=== PATIENT | female | born 1970 | race Caucasian/White ===

== ENCOUNTER → 2017-01-19 | Outpatient (CLI) | payer BC ==
[~2017-01-19] MED LIST: ASPI-232 PO; CALC500C70 PO; LEVO25TA PO; MULTTAB58 PO; VNTHFA/IN INH
--- NOTE | 2017-01-19 15:21 | DIAGNOSTIC IMAGING REPORT ---
LEFT LOWER EXTREMITY VENOUS DOPPLER HISTORY: M79.605 Left leg [id number] COMPARISON STUDY: None. FINDINGS: There is normal compressibility, flow, and augmentation within the left lower extremity deep venous system. However, there is thrombus identified within the greater saphenous vein at the mid calf extending up to the level of the knee. IMPRESSION: No DVT within the left lower extremity. Thrombosed greater saphenous vein within the left lower leg. Electronically signed by: Richard Gaviria M.D. 01/19/2017 3:20 PM Dictated Date/Time: 01/19/2017 3:19 PM
== END | disposition home or self-care (01) ==
LOC: C.ULTRBC 14:46
PROVIDERS: ATTEND Physician Assistant
DX: I82.812 Embolism and thrombosis of superficial veins of left lower extremity (principal)

== ENCOUNTER → 2017-02-03 | Outpatient (CLI) | payer BC ==
--- NOTE | 2017-02-03 12:55 | MAMMOGRAPHY REPORT ---
BILATERAL DIGITAL SCREENING MAMMOGRAM TOMOSYNTHESIS WITH CAD: 02/03/2017 CLINICAL HISTORY: Routine screening. Patient has no complaints. TECHNIQUE: Breast tomosynthesis in addition to standard 2D mammography was performed. Current study was also evaluated with a Computer Aided Detection (CAD) system. COMPARISON: Comparison is made to exams dated: 01/30/2016 mammogram, 01/28/2015 mammogram, 01/21/2014 m ammogram, 01/17/2013 mammogram, 04/06/2011 mammogram, and 02/25/2010 mammogram - [facility] nter. BREAST COMPOSITION: The tissue of both breasts is heterogeneously dense, which may obscure small mas ses. FINDINGS: No suspicious masses, calcifications, or areas of architectural distortion are noted in ei ther breast. There has been no significant interval change compared to prior exams. The previously s een 2 adjacent benign cysts in the left 12:00 breast are decreased in size compared to the 2016 exam. Bilateral benign-appearing calcifications are not significantly changed. IMPRESSION: ACR BI-RADS CATEGORY 2: BENIGN There is no mammographic evidence of malignancy. A 1 year screening mammogram is recommended. The pa tient will receive written notification of the results. Approximately 10% of breast cancers are not detected with mammography. A negative mammographic report should not delay biopsy if a clinically suggestive mass is present. Scarlet Cintron M.D. ah/:02/03/2017 08:40:46 Delinquent Tax Collector: Cindy AVELAR)(Jaye), [facility] letter sent: Normal 1/2 BI-RADS Code: ACR BI-RADS Category 2: Benign
== END | disposition home or self-care (01) ==
LOC: C.MAMM 07:26
PROVIDERS: ATTEND Obstetrics & Gynecology
DX: Z12.31 Encounter for screening mammogram for malignant neoplasm of breast (principal)

== ENCOUNTER → 2017-08-08 | Outpatient (CLI) | payer BC ==
--- NOTE | 2017-08-08 12:06 | DIAGNOSTIC IMAGING REPORT ---
CT ANGIOGRAPHY OF THE CHEST, PULMONARY EMBOLUS PROTOCOL CLINICAL HISTORY: Chest discomfort. Superficial thrombosis of leg. COMPARISON STUDY: No previous studies for comparison. TECHNIQUE: Following IV administration of 93 mL of Optiray-320, helical axial images of the chest were obtained utilizing the pulmonary embolus protocol. Maximal intensity projections and sagittal and coronal reformats were viewed on an independent 3D workstation. IV contrast was administered without complication. A dose lowering technique was utilized adhering to the principles of ALARA. CT DOSE: 330.85 mGycm FINDINGS: No pulmonary emboli are identified. There is no evidence for thoracic aortic dissection. The size of the heart is normal. There is no pericardial effusion. No enlarged thoracic lymph nodes are present. There is no consolidation to suggest pneumonia and the central airways are patent. Note is made of a 1 cm cystic lesion within the left upper lobe shown on image 201 of 303. This has a thin wall with possible fine internal septations. There is no nodular component. Bony thorax and upper abdomen are unremarkable. IMPRESSION: 1. No pulmonary emboli identified. 2. No acute intrathoracic findings. 3. 1 cm left upper lobe cystic lesion. This likely reflects a cyst and is low suspicion. However, a follow-up chest CT in one year to ensure stability is recommended. Electronically signed by: Kane Goodwin M.D. 08/08/2017 12:05 PM Dictated Date/Time: 08/08/2017 11:56 AM
--- NOTE | 2017-08-08 12:36 | DIAGNOSTIC IMAGING REPORT ---
VENOUS DOPP LOWER EXT UNILAT CLINICAL HISTORY: M79.605 Left leg painU pain. Edema. TECHNIQUE: Venous Doppler COMPARISON STUDY: 06/13/2013 FINDINGS: Focal occlusive thrombus present within the left greater saphenous vein at the mid calf level. This is considered chronic. All major deep venous structures are intact. Compressibility and augmentation characteristics are unremarkable. IMPRESSION: 1. Study is negative for deep venous thrombosis. 2. 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 It may contain grammatical, syntax or spelling errors. Electronically signed by: Wilner Keith M.D. 08/08/2017 12:35 PM Dictated Date/Time: 08/08/2017 12:33 PM
== END | disposition home or self-care (01) ==
LOC: C.CTS 11:19
PROVIDERS: ATTEND Physician Assistant
DX: I80.02 Phlebitis and thrombophlebitis of superficial vessels of left lower extremity (principal); R07.89 Other chest pain; M79.605 Pain in left leg

== ENCOUNTER → 2017-12-23 | Outpatient (CLI) | payer OTHER | LOC: C.LABSPEC 18:13 → C.PAPS 18:16 | PROVIDERS: ATTEND Obstetrics & Gynecology | DX: H43.819 Vitreous degeneration, unspecified eye (principal); Z01.419 Encounter for gynecological examination (general) (routine) without abnormal findings ==